=== PATIENT | male | born 1970 ===

== ENCOUNTER 2017-07-02 15:05 | Emergency (ER) | payer MEDICAID ==
[2014-12-23 15:00] VITALS: BMI 29.9
[2017-07-02 15:47] VITALS: BP 127/80; PULSE 79; RESP 16; TEMP 97.5; O2SAT 99
--- NOTE | 2017-07-02 16:17 | ED PDOC ---
Lower Extremity Pain/Injury Time Seen by Provider: 07/02/17 15:56 Chief Complaint (Nursing): Lower Extremity Problem/Injury Chief Complaint (Provider): Left knee pain History Per: Patient History/Exam Limitations: no limitations Current Symptoms Are (Timing): Still Present Additional Complaint(s): 47 y/o male presents to the emergency department with left knee pain that worsens with bending of the pain for 3 days. Reports pain improves when he leg is straight. States he took Ibuprofen 800 mg and had not experienced similar symptoms in the past. Denies any fall or injury. PMD: Dr. Allen Verma MD Past Medical History Reviewed: Historical Data, Nursing Documentation, Vital Signs Vital Signs: Last Vital Signs Temp 97.5 F L 07/02/17 15:43 Pulse 79 07/02/17 15:43 Resp 16 07/02/17 15:43 BP 127/80 07/02/17 15:43 Pulse Ox 99 07/02/17 15:43 - Medical History PMH: Anxiety, Back Problems, Depression, Gastritis, HTN, Kidney Stones, Chronic Kidney Disease - Surgical History Other surgeries: Kindey surgery - Family History Family History: States: Unknown Family Hx - Social History Current smoker - smoking cessation education provided: No Alcohol: None Drugs: Denies - Home Medications Home Medications: Ambulatory Orders Medication Instructions Recorded Alprazolam 0.5 mg PO DAILY 12/23/14 Atenolol 25 mg PO DAILY 12/23/14 Multivitamin [Multiple Vitamins 1 tab PO DAILY 12/23/14 For Kids] Vortioxetine Hydrobromide 10 mg PO DAILY 12/26/14 [Brintellix] Cyclobenzaprine HCl [Flexeril] 10 mg PO BID PRN #12 tab 04/30/15 Ibuprofen [Motrin Tab] 800 mg PO Q6H PRN #20 tab 04/30/15 Ibuprofen [Motrin Tab] 800 mg PO Q8 PRN #20 tab 07/02/17 - Allergies Allergies/Adverse Reactions: Allergies Allergy/AdvReac Type Severity Reaction Status Date / Time Penicillins Allergy RASH Verified 07/02/17 15:43 Review of Systems ROS Statement: Except As Marked, All Systems Reviewed And Found Negative (As per HPI, otherwise negative) Constitutional: Negative for: Other (No fall or injury) Musculoskeletal: Positive for: Other (Left knee pain and swelling) Physical Exam - Reviewed Nursing Documentation Reviewed: Yes Vital Signs Reviewed: Yes - Physical Exam Appears: Positive for: Non-toxic, No Acute Distress Head Exam: Positive for: ATRAUMATIC, NORMAL INSPECTION, NORMOCEPHALIC Skin: Positive for: Normal Color, Warm, Dry Extremity: Positive for: Normal ROM (Full range of motion of the left knee), Tenderness (to the left patella region), Swelling (Localized swelling to the left patella region). Negative for: Other (No warmth or evidence of possible infection. ) Neurologic/Psych: Positive for: Alert, Oriented (x3) - ECG O2 Sat by Pulse Oximetry: 99 (RA) Pulse Ox Interpretation: Normal - Other Rad Left knee x-ray X-Ray: Interpreted by Me, Viewed By Me X-Ray Interpretation: no fx, no dis Medical Decision Making Medical Decision Making: Time: 1612 Initial impression: 47 y/o male with left knee pain Plan: X-ray left knee PO motrin Patient is aware of x-ray results. He reports improvement of pain after medication administered. Patient was given knee immobilizer, crutches declined. Prescription provided for Motrin, orthopedic referral also provided for follow- up. Scribe Attestation: Documented by Tiana Velásquez, acting as a scribe for Caroline eYe PA-C Provider Scribe Attestation: All medical record entries made by the Scribe were at my direction and personally dictated by me. I have reviewed the chart and agree that the record accurately reflects my personal performance of the history, physical exam, medical decision making, and the department course for this patient. I have also personally directed, reviewed, and agree with the discharge instructions and disposition. Procedures - Splinting Location: left knee Pre-Made Type: knee immobilizer Pre-Proc Neuro Vasc Exam: normal Post-Proc Neuro Vasc Exam: normal Disposition - Clinical Impression Clinical Impression: Knee pain - Patient ED Disposition Is Patient to be Admitted: No Counseled Patient/Family Regarding: Studies Performed, Diagnosis, Need For Followup, Rx Given - Disposition Referrals: Nito Bazzi III, MD [Staff Provider] - Disposition: Routine/Home Disposition Time: 17:34 Condition: STABLE Additional Instructions: Ice and elevate affected area. Take prescription meds as directed as needed for pain. Follow-up with orthopedist or primary doctor for any persistent symptoms. Prescriptions: Ibuprofen [Motrin Tab] 800 mg PO Q8 PRN #20 tab PRN Reason: Pain, Moderate (4-7) Instructions: Knee Pain (ED), Knee Immobilizer (ED) Forms: [facility] ([place])
--- NOTE | 2017-07-02 16:56 | RAD ---
PROCEDURE: Left Knee Radiographs. HISTORY: Pain. COMPARISON: None. FINDINGS: BONES: Normal. No fracture. JOINTS: Normal. No osteoarthritis. JOINT EFFUSION: None. OTHER FINDINGS: None. IMPRESSION: Normal radiographs of the left knee.
== END 2017-07-02 18:13 | disposition home or self-care (01) ==
LOC: H.ER 15:05
DX: M25.562 Pain in left knee (principal); F32.9 Major depressive disorder, single episode, unspecified; F41.9 Anxiety disorder, unspecified; I12.9 Hypertensive chronic kidney disease with stage 1 through stage 4 chronic kidney disease, or unspecified chronic kidney disease; Z88.0 Allergy status to penicillin; Z87.442 Personal history of urinary calculi
CPT/HCPCS: 29530; 73562; 96372; 99283; J1885

== ENCOUNTER 2017-07-28 21:17 | Emergency (ER) | payer MEDICAID ==
[2014-12-23 15:00] VITALS: BMI 29.9
[2017-07-28 21:30] VITALS: BP 135/82; PULSE 79; RESP 18; TEMP 98.1; O2SAT 100
[2017-07-28] MEDS ORDERED: DiphenhydrAMINE 50 mg/ml Inj IVP STA (21:42)
--- NOTE | 2017-07-28 21:48 | ED PDOC ---
HPI: Skin/Bite Injury Time Seen by Provider: 07/28/17 21:38 Chief Complaint (Nursing): Allergic Reaction Chief Complaint (Provider): Allergic Reaction History Per: Patient History/Exam Limitations: no limitations Onset/Duration Of Symptoms: Days (x1) Current Symptoms Are (Timing): Still Present Additional Complaint(s): 47 year old male with previous medical history of asthma, who presents to the emergency department with a complaint of diffuse rash to abdomen, back and bilateral legs ongoing since this morning associated with redness, itchiness, nausea and minimal cough that did not resolve after taking Zyrtec. Denied any productive cough or lip swelling. Approximately 1 hour prior to arrival, patient began feeling itchiness in throat that felt like "it was closing up", which prompted visit to ED. Patient stated he had similar symptoms 2 weeks ago that resolved with Benadryl and followed up with an shoe shanker who diagnosed him with peanut, pollen, cat dander and Penicillin allergy. However, patient stated he has no known new exposure to listed allergies. PMD: Allen Verma MD Past Medical History Reviewed: Historical Data, Nursing Documentation, Vital Signs Vital Signs: Last Vital Signs Temp 98.1 F 07/28/17 21:28 Pulse 79 07/28/17 21:28 Resp 18 07/28/17 21:28 BP 135/82 07/28/17 21:28 Pulse Ox 100 07/28/17 22:05 - Medical History PMH: Anxiety, Back Problems, Depression, Gastritis, HTN, Kidney Stones, Chronic Kidney Disease - Surgical History Surgical History: No Surg Hx - Family History Family History: States: Unknown Family Hx - Social History Current smoker - smoking cessation education provided: No Alcohol: None Drugs: Denies - Home Medications Home Medications: Ambulatory Orders Medication Instructions Recorded Alprazolam 0.5 mg PO DAILY 12/23/14 Atenolol 25 mg PO DAILY 12/23/14 Multivitamin [Multiple Vitamins 1 tab PO DAILY 12/23/14 For Kids] Vortioxetine Hydrobromide 10 mg PO DAILY 12/26/14 [Brintellix] Cyclobenzaprine HCl [Flexeril] 10 mg PO BID PRN #12 tab 04/30/15 Ibuprofen [Motrin Tab] 800 mg PO Q6H PRN #20 tab 04/30/15 Ibuprofen [Motrin Tab] 800 mg PO Q8 PRN #20 tab 07/02/17 DiphenhydrAMINE [Benadryl] 25 mg PO Q6 #30 cap 07/28/17 Prednisone 50 mg PO DAILY #2 tablet 07/28/17 - Allergies Allergies/Adverse Reactions: Allergies Allergy/AdvReac Type Severity Reaction Status Date / Time peanut Allergy RASH Verified 07/28/17 21:31 Penicillins Allergy RASH Verified 07/28/17 21:31 Review of Systems ROS Statement: Except As Marked, All Systems Reviewed And Found Negative ENT: Positive for: Throat Swelling (and itching). Negative for: Mouth Swelling (lips) Respiratory: Positive for: Cough (minimal). Negative for: Sputum Gastrointestinal: Positive for: Nausea Skin: Positive for: Rash (diffuse to abdomen, back and bilateral leg with redness and itching) Physical Exam - Reviewed Nursing Documentation Reviewed: Yes Vital Signs Reviewed: Yes - Physical Exam Appears: Positive for: Non-toxic, In Acute Distress Head Exam: Positive for: ATRAUMATIC, NORMOCEPHALIC Skin: Positive for: Warm, Dry, Rash (urticarial rash to trunk and bilateral groins and upper thighs bilaterally) Eye Exam: Positive for: EOMI, PERRL ENT: Positive for: Other (uvula or palatial edema). Negative for: Pharyngeal Erythema, Tonsillar Exudate, Tonsillar Swelling Neck: Positive for: Painless ROM, Supple Cardiovascular/Chest: Positive for: Regular Rate, Rhythm. Negative for: Murmur Respiratory: Negative for: Stridor, Wheezing, Respiratory Distress Gastrointestinal/Abdominal: Positive for: Soft. Negative for: Tenderness Back: Positive for: Normal Inspection. Negative for: Decreased ROM Extremity: Positive for: Normal ROM. Negative for: Deformity Lymphatic: Negative for: Adenopathy Neurologic/Psych: Positive for: Alert. Negative for: Motor/Sensory Deficits - ECG O2 Sat by Pulse Oximetry: 100 (RA) Pulse Ox Interpretation: Normal Medical Decision Making Medical Decision Making: Initial Impression: Allergic reaction with respiratory symptoms Initial Plan: * Benadryl 25mg IVP * Pepcid 20mg IVP * Solu-medrol 125mg IVP 11p Pt feels better and rash resolved greatly. Eager to go home. DW pt plan of care. Benadryl q6h x 48 hours, prednisone x 2d. f/u dr verma Scribe Attestation: Documented by Angelina Villagomez, acting as a scribe for Caroline Baugh MD. Provider Scribe Attestation: All medical record entries made by the Scribe were at my direction and personally dictated by me. I have reviewed the chart and agree that the record accurately reflects my personal performance of the history, physical exam, medical decision making, and the department course for this patient. I have also personally directed, reviewed, and agree with the discharge instructions and disposition. Disposition - Clinical Impression Clinical Impression: Acute allergic reaction, Hives Counseled Patient/Family Regarding: Studies Performed, Diagnosis, Need For Followup, Rx Given - Disposition Referrals: Allen Verma MD [Family Provider] - Disposition: Routine/Home Disposition Time: 23:00 Condition: IMPROVED Prescriptions: DiphenhydrAMINE [Benadryl] 25 mg PO Q6 #30 cap Prednisone 50 mg PO DAILY #2 tablet Instructions: Urticaria (ED), General Allergic Reaction (ED)
== END 2017-07-28 23:35 | disposition home or self-care (01) ==
LOC: H.ER 21:17
DX: T78.40XA Allergy, unspecified, initial encounter (principal); L50.0 Allergic urticaria; Z88.0 Allergy status to penicillin
CPT/HCPCS: 96374; 96375; 99282; J1200; J2930